=== PATIENT | female | born 1935 | race Caucasian/White ===

== ENCOUNTER → 2017-08-23 09:28 | Outpatient (CLI) | payer MEDICARE, OTHER, SELFPAY ==
--- NOTE | 2017-08-23 | DI.US.S_ITS ---
PROCEDURE: US THYROID INDICATIONS: 81 year-old female with enlarged thyroid gland. TECHNIQUE: Real-time scanning was performed of the thyroid gland, with image documentation. COMPARISON: None. FINDINGS: Right: Thyroid lobe measures 4.5 x 1.9 x 1.4 cm, and is heterogeneous in echotexture. Left: Thyroid lobe measures 4.4 x 1.8 x 1.2 cm, and is heterogeneous in echotexture. Isthmus: 2 mm thick. Nodule number: 1 Location: Right inferior lobe. Size: 1.0 x 0.7 x 0.6 cm. Composition: Predominantly solid. Echogenicity: Hyperechoic. Shape: wider than tall. Margins: Smooth. Echogenic foci: None. Total points: 3. ACR TI-RADS category: 3 (mildly suspicious). IMPRESSION: Solitary 1 cm solid right thyroid nodule demonstrates mildly suspicious ultrasound morphology. ACR TI-RADS 3 (mildly suspicious): Following the guidelines below, further imaging followup is not needed, given its size of less than 1.5 cm. ACR TI-RADS definitions and recommendations: TI-RADS 1 (benign): 0 points. FNA not needed. TI-RADS 2 (not suspicious): 2 points. FNA not needed. TI-RADS 3 (mildly suspicious): 3 points. * FNA if 2.5 cm or larger, follow up if 1.5 cm or larger (at 1, 3, and 5 years). TI-RADS 4 (moderately suspicious): 4-6 points. * FNA if 1.5 cm or larger, follow up if 1 cm or larger (at 1, 2, 3, and 5 years). TI-RADS 5 (highly suspicious): 7 points or more. * FNA if 1 cm or larger, follow up if 0.5 cm or larger (every year for 5 years). Dictated by: Jay Mera M.D. on 08/23/2017 at 10:53 Approved by: Jay Mera M.D. on 08/23/2017 at 10:58
== END ==
PROVIDERS: PCP Nurse Practitioner Family; Visit Provider Nurse Practitioner Family
DX: E04.1 Nontoxic single thyroid nodule (principal)
CPT/HCPCS: 76536

== ENCOUNTER → 2017-10-21 14:01 | Outpatient (CLI) | payer MEDICARE, OTHER, SELFPAY ==
--- NOTE | 2017-10-21 | DI.US.S_ITS ---
PROCEDURE: US CAROTID DOPPLER BI INDICATIONS: TIA TECHNIQUE: Color and pulse Doppler interrogation was performed of both carotid systems, with image documentation and velocity measurements. COMPARISON: None. FINDINGS: Stenosis calculations are based on SRU (Society of Radi[employer] in Ultras[employer]) criteria. Right side: Brachial blood pressure: 157/75 mm Hg. Common carotid artery peak systolic velocity: 61 cm/sec. Internal carotid artery peak systolic velocity: 75 cm/sec. Internal carotid artery end diastolic velocity: 21 cm/sec. External carotid artery peak systolic velocity: 58 cm/sec. ICA/CCA peak systolic ratio: 1.2 Clemons scale imaging description: Mild scattered plaque. Percent internal carotid artery stenosis: Less than 50%. Vertebral artery: Flow direction is antegrade. Left side: Brachial blood pressure: 153/80 mm Hg. Common carotid artery peak systolic velocity: 88 cm/sec. Internal carotid artery peak systolic velocity: 61 cm/sec. Internal carotid artery end diastolic velocity: 13 cm/sec. External carotid artery peak systolic velocity: 64 cm/sec. ICA/CCA peak systolic ratio: 0.7. Clemons scale imaging description: Mild scattered plaque. Percent internal carotid artery stenosis: Less than 50%. Vertebral artery: Flow direction is antegrade. IMPRESSION: Less than 50% bilateral internal carotid artery stenosis. Dictated by: Ramon Bone [facility] Interpreted: Roberth Santoro MD on 10/21/2017 at 15:31 Approved by: Roberth Santoro M.D. on 10/24/2017 at 9:54
== END ==
PROVIDERS: PCP Family Medicine; Visit Provider Nurse Practitioner Family
DX: G45.9 Transient cerebral ischemic attack, unspecified (principal); I65.23 Occlusion and stenosis of bilateral carotid arteries
CPT/HCPCS: 93880

== ENCOUNTER → 2020-07-17 08:09 | Outpatient (CLI) | payer MEDICARE, OTHER, SELFPAY ==
[2020-07-17 20:11] LABS: Add Manual Diff / Slide Review NO; Basophils Absolute Auto 100 /uL (0-100); Basophils Percent Auto 0.8 % (0-2); Eosinophils Absolute Auto 100 /uL (0-450); Eosinophils Percent Auto 1.4 % (2-4); Hemoglobin 14.4 g/dL (12.0-16.0); Lymphocytes Absolute Auto 2500 /uL (1100-4500); Lymphocytes Percent Auto 39.6 % (25-40); Mean Corpuscular HGB Conc 34.3 % (30-36); Mean Corpuscular Hemoglobin 32.4 PG (26-34); Mean Corpuscular Volume 94.6 fL (80-100); Monocytes Absolute Auto 500 /uL (0-900); Monocytes Percent Auto 8.4 % (3-14); Neutrophils Absolute Auto 3200 /uL (1500-7000); Neutrophils Percent Auto 49.8 % (50-75); Platelet Count 240 X10^3/uL (150-400); Red Blood Cell Count 4.44 X10^6/uL (4.0-5.2); Red Cell Distribution Width 12.7 % (11.6-14.8); White Blood Cell Count 6.4 X10^3/uL (4.5-11.0)
[2020-07-17 20:52] LABS: Alanine Aminotransferase 17 IU/L (<35); Albumin 4.1 g/dL (3.5-5.0); Albumin Globulin Ratio 1.5 (1.0-2.8); Alkaline Phosphatase 87 U/L (38-126); Aspartate Aminotransferase 32 IU/L (14-36); BUN Creatinine Ratio 27.9 (6-22); Bilirubin Total 0.6 mg/dL (0.2-1.3); Blood Urea Nitrogen 17 mg/dL (7-17); Calcium 9.3 mg/dL (8.4-10.2); Carbon Dioxide 30 mmol/L (22-32); Chloride 101 mmol/L (98-107); Cholesterol 183 mg/dL (140-199); Estimated Glomerular Filt Rate > 60.0 mL/min (>60); Globulin 2.8 g/dL (1.7-4.1); Glucose 91 mg/dL (80-110); HDL Cholesterol 79 mg/dL (40-60); HEMOLYSIS < 15 (0-50); LDL Cholesterol Calculated 88 mg/dL (<100); Potassium 3.8 mmol/L (3.4-5.1); Sodium 139 mmol/L (137-145); Total Protein 6.9 g/dL (6.3-8.2); Triglycerides 78 mg/dL (35-150)
[2020-07-17 21:20] LABS: TSH w/ Reflex to FT4 1.12 uIU/mL (0.47-4.68)
== END ==
PROVIDERS: PCP Family Medicine; Visit Provider Physician Assistant Medical
DX: I10 Essential (primary) hypertension (principal); E78.5 Hyperlipidemia, unspecified; I45.4 Nonspecific intraventricular block; R53.1 Weakness
CPT/HCPCS: 80053; 80061; 84443; 85025